=== PATIENT | male | born 1945 | race Caucasian/White ===

== ENCOUNTER 2017-07-20 11:29 | Emergency (ER) | payer MEDICARE ==
--- NOTE | 2017-07-20 11:38 | EDM.PDOC ---
ED HPI GENERAL MEDICAL PROBLEM - General Chief Complaint: General Stated Complaint: high bp, low O2. coming from [facility] Time Seen by Provider: 07/20/17 11:30 Source of Information: Reports: Patient, Provider History Limitations: Reports: No Limitations - History of Present Illness INITIAL COMMENTS - FREE TEXT/NARRATIVE: 72 yo white male seen in PCP office this AM w/ elevated BP w/ systolic 190. Pt. denies Chest Pain and States his breathing is normal for him after 40 yr hx. of cigarette smoking and he stopped 2 yrs ago. Pt. admits to taking his Lisinopril w/ his coffee this AM Onset: Today Onset Date: 07/20/17 Onset Time: 10:00 Duration: Day(s): Location: Reports: Chest Severity: Mild Improves with: Reports: None Worsens with: Reports: None Associated Symptoms: Reports: Cough - Related Data Allergies Allergy/AdvReac Type Severity Reaction Status Date / Time hydrocodone AdvReac Nausea and Verified 07/20/17 12:15 Vomiting Home Meds: Home Meds Levothyroxine Sodium [Synthroid] 175 mcg PO ACBREAKFAST 07/25/15 [History] Lisinopril 40 mg PO DAILY 07/25/15 [History] Aspirin [Halfprin] 81 mg PO WITHBREAKFAST #30 tab.ec 07/29/15 [Rx] Calcium Carbonate/Vitamin D3 [Calcium 600 + D3 Softgel] 1 each PO DAILY [History] Past Medical History Other Oncologic History: throat Social & Family History - Tobacco Use Smoking Status *Q: Current Every Day Smoker Years of Tobacco use: 40 Packs/Tins Daily: 1 Used Tobacco, but Quit: No Second Hand Smoke Exposure: Yes - Recreational Drug Use Recreational Drug Use: No - Living Situation & Occupation Living situation: Reports: , with Spouse Occupation: Retired ED ROS GENERAL - Review of Systems Review Of Systems: See Below Constitutional: Reports: No Symptoms HEENT: Reports: No Symptoms Respiratory: Reports: Cough Cardiovascular: Reports: No Symptoms Endocrine: Reports: No Symptoms GI/Abdominal: Reports: No Symptoms : Reports: No Symptoms Musculoskeletal: Reports: No Symptoms Skin: Reports: No Symptoms Neurological: Reports: No Symptoms Psychiatric: Reports: No Symptoms Hematologic/Lymphatic: Reports: No Symptoms Immunologic: Reports: No Symptoms ED EXAM, GENERAL - Physical Exam Exam: See Below Exam Limited By: No Limitations General Appearance: Alert, No Apparent Distress Eye Exam: Bilateral Eye: EOMI, PERRL Ears: Normal External Exam Nose: Normal Inspection Throat/Mouth: Normal Inspection Head: Atraumatic Neck: Normal Inspection Respiratory/Chest: No Respiratory Distress, Lungs Clear, No Accessory Muscle Use Cardiovascular: Normal Peripheral Pulses GI/Abdominal: Normal Bowel Sounds, Soft Back Exam: Normal Inspection Extremities: Normal Inspection, Normal Range of Motion Neurological: Alert, Oriented, CN II-XII Intact Psychiatric: Normal Affect Skin Exam: Warm, Dry, Intact Lymphatic: No Adenopathy Course - Vital Signs Text/Narrative:: Lab WNL CXR : Atelactesis Last Recorded V/S: Last Vital Signs Temp 36.6 C 07/20/17 12:19 Pulse 77 07/20/17 12:19 Resp 28 H 07/20/17 12:19 BP 174/96 H 07/20/17 12:19 Pulse Ox 98 07/20/17 12:19 - Orders/Labs/Meds Orders: Active Orders 24 hr Category Date Time Status EKG Documentation Completion [RC] STAT Care 07/20/17 11:31 Active RT Aerosol Therapy [RC] ASDIRECTED Care 07/20/17 11:41 Active Chest 1V Frontal [CR] Urgent Exams 07/20/17 11:31 Taken Sodium Chloride 0.9% [Normal Saline] 250 ml Med 07/20/17 11:45 Active IV ASDIRECTED Medication Orders Sodium Chloride (Normal Saline) 250 mls @ 100 mls/hr IV ASDIRECTED CABRERA Last Admin: 07/20/17 12:08 Dose: 100 mls/hr Labs: Laboratory Tests 07/20/17 07/20/17 Range/Units 11:49 11:49 D-Dimer, Quantitative 226 (0-400) ng/mL Troponin I < 0.02 (0.00-0.02) ng/ml B-Natriuretic Peptide 21 (0-100) pg/ml Meds: Medications Generic Name Dose Route Start Last Admin Trade Name Freq PRN Reason Stop Dose Admin Sodium Chloride 250 mls @ 100 mls/hr 07/20/17 11:45 07/20/17 12:08 Normal Saline IV 100 mls/hr ASDIRECTED CABRERA Administration Discontinued Medications Generic Name Dose Route Start Last Admin Trade Name Freq PRN Reason Stop Dose Admin Albuterol/Ipratropium 3 ml 07/20/17 11:41 11/30/17 12:01 Duoneb 3.0-0.5 Mg/3 Ml NEB 07/20/17 11:42 3 ml ONETIME ONE Administration Hydralazine HCl 25 mg 07/20/17 11:39 07/20/17 12:06 Apresoline PO 07/20/17 11:40 25 mg NOW ONE Administration Departure - Departure Time of Disposition: 12:37 Disposition: Home, Self-Care 01 Condition: Good Clinical Impression: URI (upper respiratory infection) Qualifiers: URI type: unspecified viral URI Qualified Code(s): J06.9 - Acute upper respiratory infection, unspecified; B97.89 - Other viral agents as the cause of diseases classified elsewhere; B97.89 - Other viral agents as the cause of diseases classified elsewhere Forms: ED Department Discharge Additional Instructions: Rest Increase intake of Fluids ( Water /Juice) Practice Deep Breathing and Cough to keep lungs clear F/U w/ PCP - My Orders Last 24 Hours: My Active Orders 07/20/17 11:31 EKG Documentation Completion [RC] STAT Chest 1V Frontal [CR] Urgent 07/20/17 11:41 RT Aerosol Therapy [RC] ASDIRECTED 07/20/17 11:45 Sodium Chloride 0.9% [Normal Saline] 250 ml IV ASDIRECTED - Assessment/Plan Last 24 Hours: My Active Orders 07/20/17 11:31 EKG Documentation Completion [RC] STAT Chest 1V Frontal [CR] Urgent 07/20/17 11:41 RT Aerosol Therapy [RC] ASDIRECTED 07/20/17 11:45 Sodium Chloride 0.9% [Normal Saline] 250 ml IV ASDIRECTED
[2017-07-20] MEDS ORDERED: hydrALAZINE 25 MG Tab PO ONE (11:39)
[2017-07-20] MEDS ORDERED: Albuterol/Ipratropium 3.0-0.5 MG/3 ML Neb Soln NEB ONE (11:41)
[2017-07-20] MEDS ORDERED: Sodium Chloride 0.9% 250 ML IV SCH (11:45)
--- NOTE | 2017-07-20 12:37 | CR ---
Clinical history: 72-year-old male shortness of breath reported in the past to have "severe COPD". Interpretation: Upright AP portable chest films (x2) reveal no acute new cardiopulmonary abnormality in the interval since 25 July 2015 PA chest film. Normal cardiac silhouette without cephalization of vascular flow, new signs of alveolar edema or depe ndent pleural effusion. No new lung mass, hilar lymphadenopathy, focal lobar infiltrate or atelectasis/collapse.
[2017-07-20 12:43] VITALS: BP 153/76
--- NOTE | 2017-07-24 07:45 | EKG ---
07/20/2017- EULALIA SIMPSON - EKG, per my reading, shows sinus rhythm with left anterior fascicular block at a rate of 74. [facility] /[id number]
== END 2017-07-20 12:57 | disposition home or self-care (01) ==
LOC: DL.ED 11:29
DX: I10 Essential (primary) hypertension (principal); J44.9 Chronic obstructive pulmonary disease, unspecified; F17.210 Nicotine dependence, cigarettes, uncomplicated; Z79.82 Long term (current) use of aspirin; Z79.899 Other long term (current) drug therapy; Z88.5 Allergy status to narcotic agent
CPT/HCPCS: 36415; 71010; 83880; 84484; 85379; 93005; 93010; 94640; 96360; 99285; A9270; J7050; 99284

== ENCOUNTER 2018-11-04 11:49 | Inpatient (IN) | payer MEDICARE, OTHER ==
[2018-11-04] MEDS ORDERED: Albuterol/Ipratropium 3.0-0.5 MG/3 ML Neb Soln NEB ONE (12:07)
[2018-11-04] MEDS ORDERED: methylPREDNISolone Sodium Succinate 125 MG/2 ML SDV IVPUSH ONE (12:12)
[2018-11-04] MEDS ORDERED: Ondansetron 4 MG/2 ML SDV IV ONE (12:12)
[2018-11-04] MEDS: Sodium Chloride 0.9% 10 ML Syringe FLUSH PRN ×2 (12:19→18:13)
[2018-11-04 12:48] LABS: ANION GAP 15.8; CHLORIDE,CL 86 mmol/L (101-111); SODIUM,NA 129 mmol/L (135-145)
[2018-11-04] MEDS ORDERED: Acetaminophen 500 MG Tab PO ONE (13:34)
[2018-11-04] MEDS ORDERED: Iopamidol 612 MG/ML 75 ML Bottle IVPUSH ONE (14:49)
[2018-11-04] MEDS ORDERED: Iopamidol 755 Mg/ML 100 ML Bottle IVPUSH ONE (15:16)
[2018-11-04] MEDS ORDERED: Levofloxacin/Dextrose 5%-Water 500 MG in Premix Bag 1 BAG IV ONE (16:14)
[2018-11-04] MEDS ORDERED: cefTRIAXone 1 GM in Sodium Chloride 0.9% 50 ML IV ONE (16:14)
[2018-11-04] MEDS ORDERED: cefTRIAXone 1 GM Vial ONE (16:37)
--- NOTE | 2018-11-04 17:05 | PCM.HP ---
H&P History of Present Illness - General Date of Service: 11/04/18 Admit Problem/Dx: admitted with: Increased shortness of breath secondary to COPD exacerbation Secondary to Pneumonia Source of Information: Patient, EMS Notes Reviewed, Old Records - History of Present Illness Initial Comments - Free Text/Narative: Mr. Adams Morton a 73 y.o.malewith medical history significant for non-ST elevation VT in the past, COPD, hypertension, and pst history of nicotine dependence ( quit 5 yrs ago) who presented to the ED in [place] with complaints of shortness of breath and he had elevated white count, CXR showed left lower lobe Pneumonia, he also had elevated D-dimer and he CT angiogram- negative for PE and also showed left lower lobe pneumonia. his o2 sat in ER low, he is on home oxygen but now he needs more. He is admitted for COPD exerbation secondary to pneumonia Onset of Symptoms: Reports: Gradual Duration of Symptoms: Reports: Getting Worse Associated Symptoms: Reports: cough w sputum - Related Data Allergies/Adverse Reactions: Allergies Allergy/AdvReac Type Severity Reaction Status Date / Time hydrocodone AdvReac Nausea and Verified 11/04/18 12:30 Vomiting Home Medications: Home Meds Levothyroxine Sodium [Synthroid] 175 mcg PO ACBREAKFAST 07/25/15 [History] Lisinopril 40 mg PO DAILY 07/25/15 [History] Aspirin [Halfprin] 81 mg PO WITHBREAKFAST #30 tab.ec 07/29/15 [Rx] Calcium Carbonate/Vitamin D3 [Calcium 600 + D3 Softgel] 2 each PO DAILY [History] Albuterol Sulfate 1 unit INH ASDIRECTED PRN 06/27/18 [History] Albuterol [Ventolin HFA] 2 puff INH ASDIRECTED PRN 06/27/18 [History] amLODIPine Besylate [Amlodipine Besylate] 5 mg PO DAILY 06/27/18 [History] Fluticasone/Umeclidin/Vilanter [Trelegy Ellipta 100-62.5-25 MCG] 1 puff INH DAILY 11/04/18 [History] Past Medical History HEENT History: Reports: Other (See Below) Other HEENT History: deviated septum Cardiovascular History: Reports: Hypertension Respiratory History: Reports: Bronchitis, Recurrent, COPD Other Respiratory History: wears home O2 Genitourinary History: Reports: Other (See Below) Other Genitourinary History: elevated PSA Musculoskeletal History: Reports: Fracture Endocrine/Metabolic History: Reports: Hypothyroidism Oncologic (Cancer) History: Reports: Other (See Below) Other Oncologic History: throat - Infectious Disease History Infectious Disease History: Reports: MRSA - Past Surgical History Musculoskeletal Surgical History: Reports: Other (See Below) Other Musculoskeletal Surgeries/Procedures:: right hip femoral neck fracture- hemiarthroplasty Social & Family History - Tobacco Use Smoking Status *Q: Former Smoker Used Tobacco, but Quit: Yes Month/Year Tobacco Last Used: 4 Tobacco Use Comment: states he stopped smoking approx. 4 years ago, thinks it was longer than that - Caffeine Use Caffeine Use: Reports: Coffee, Soda - Living Situation & Occupation Living situation: Reports: , with Spouse Occupation: Retired H&P Review of Systems - Review of Systems: Review Of Systems: See Below General: Reports: Weakness. Denies: Fever, Chills HEENT: Denies: Headaches, Hearing Changes, Sinus Congestion, Sore Throat, Visual Changes Pulmonary: Reports: Shortness of Breath, Wheezing, Cough, Sputum Cardiovascular: Denies: Chest Pain, Edema, Lightheadedness Gastrointestinal: Denies: Abdominal Pain, Diarrhea, Nausea, Vomiting Genitourinary: Denies: Dysuria, Frequency, Burning, Flank Pain Musculoskeletal: Denies: Neck Pain, Shoulder Pain, Foot Pain, Joint Swelling Skin: Denies: Cyanosis, Jaundice, Bruising, Pruritis, Rash Psychiatric: Denies: Confusion, Anxiety Neurological: Denies: Confusion, Numbness, Tingling, Tremors Hematologic/Lymphatic: Denies: Easy Bleeding, Easy Bruising Immunologic: Reports: No Symptoms Exam - Exam Exam: See Below - Vital Signs Vital Signs: Last Vital Signs Temp 38.8 C H 11/04/18 13:37 Pulse 119 H 11/04/18 11:56 Resp 31 H 11/04/18 11:56 BP Pulse Ox 68 L 11/04/18 11:56 Weight: 56.699 kg - Exam Quality Assessment: Supplemental Oxygen, DVT Prophylaxis. No: Urinary Catheter General: Alert, Oriented, Cooperative HEENT: Conjunctiva Clear, EOMI, Mucosa Moist & [place], Pupils Equal, Pupils Reactive Neck: Supple. No: Lymphadenopathy, Thyromegaly Lungs: Clear to Auscultation, Normal Respiratory Effort, Wheezing Cardiovascular: Regular Rate, Regular Rhythm, Systolic Murmur GI/Abdominal Exam: Normal Bowel Sounds, Soft, Non-Tender. No: Guarding, Rebound (Male) Exam: Deferred Rectal (Males) Exam: Deferred Back Exam: Normal Inspection, Full Range of Motion Extremities: Normal Inspection, No Pedal Edema Skin: Warm, Dry, Intact Neurological: Cranial Nerves Intact, Reflexes Equal Bilateral Neuro Extensive - Mental Status: Alert, Oriented x3, Normal Mood/Affect, Normal Cognition, Memory Intact Neuro Extensive - Motor, Sensory, Reflexes: CN II-XII Intact Psychiatric: Alert, Normal Affect, Normal Mood - Patient Data Lab Results Last 24 hrs: Laboratory Results - last 24 hr 11/04/18 11/04/18 11/04/18 Range/Units 12:15 12:15 12:15 WBC 14.9 H (5.0-10.0) 10^3/uL RBC 4.40 L (4.6-6.2) 10^6/uL Hgb 13.6 L D (14.0-18.0) g/dL Hct 40.8 (40.0-54.0) % MCV 92.7 (80-100) fL MCH 30.9 (27.0-34.0) pg MCHC 33.3 (33.0-35.0) g/dL Plt Count 182 D (150-450) 10^3/uL Neut % (Auto) 89.3 H (42.2-75.2) % Lymph % (Auto) 4.3 L (20.5-50.1) % [place] % (Auto) 5.9 (2-8) % Eos % (Auto) 0.3 L (1.0-3.0) % Baso % (Auto) 0.2 (0.0-1.0) % D-Dimer, Quantitative (0-400) ng/mL Sodium 129 L (135-145) mmol/L Potassium 3.8 (3.6-5.0) mmol/L Chloride 86 L (101-111) mmol/L Carbon Dioxide 31.0 (21.0-31.0) mmol/L Anion Gap 15.8 BUN 20 H (7-18) mg/dL Creatinine 0.9 (0.6-1.3) mg/dL Est Cr Clr Drug Dosing 58.62 mL/min Estimated GFR (MDRD) > 60 BUN/Creatinine Ratio 22.22 Glucose 128 H (74-105) mg/dL Lactic Acid 1.3 (0.5-2.2) mmol/L Calcium 9.6 (8.4-10.2) mg/dl Total Bilirubin 0.8 (0.2-1.0) mg/dL AST 31 (10-42) IU/L ALT 20 (10-60) IU/L Alkaline Phosphatase 70 (42-121) IU/L Troponin I (0.00-0.02) ng/ml B-Natriuretic Peptide 31 (0-100) pg/ml Total Protein 8.1 (6.7-8.2) g/dl Albumin 3.9 (3.2-5.5) g/dl Globulin 4.2 Albumin/Globulin Ratio 0.93 Urine Color (YELLOW) Urine Appearance (CLEAR) Urine pH (5.0-9.0) Ur Specific [place] (1.005-1.030) Urine Protein (NEGATIVE) Urine Glucose (UA) (NEGATIVE) Urine Ketones (NEGATIVE) Urine Occult Blood (NEGATIVE) Urine Nitrite (NEGATIVE) Urine Bilirubin (NEGATIVE) Urine Urobilinogen (0.2-1.0) mg/dL Ur Leukocyte Esterase (NEGATIVE) 11/04/18 11/04/18 11/04/18 Range/Units 12:15 12:15 12:35 WBC (5.0-10.0) 10^3/uL RBC (4.6-6.2) 10^6/uL Hgb (14.0-18.0) g/dL Hct (40.0-54.0) % MCV (80-100) fL MCH (27.0-34.0) pg MCHC (33.0-35.0) g/dL Plt Count (150-450) 10^3/uL Neut % (Auto) (42.2-75.2) % Lymph % (Auto) (20.5-50.1) % [place] % (Auto) (2-8) % Eos % (Auto) (1.0-3.0) % Baso % (Auto) (0.0-1.0) % D-Dimer, Quantitative 1650 H (0-400) ng/mL Sodium (135-145) mmol/L Potassium (3.6-5.0) mmol/L Chloride (101-111) mmol/L Carbon Dioxide (21.0-31.0) mmol/L Anion Gap BUN (7-18) mg/dL Creatinine (0.6-1.3) mg/dL Est Cr Clr Drug Dosing mL/min Estimated GFR (MDRD) BUN/Creatinine Ratio Glucose (74-105) mg/dL Lactic Acid (0.5-2.2) mmol/L Calcium (8.4-10.2) mg/dl Total Bilirubin (0.2-1.0) mg/dL AST (10-42) IU/L ALT (10-60) IU/L Alkaline Phosphatase (42-121) IU/L Troponin I < 0.02 (0.00-0.02) ng/ml B-Natriuretic Peptide (0-100) pg/ml Total Protein (6.7-8.2) g/dl Albumin (3.2-5.5) g/dl Globulin Albumin/Globulin Ratio Urine Color Yellow (YELLOW) Urine Appearance Clear (CLEAR) Urine pH 7.0 (5.0-9.0) Ur Specific [place] 1.020 (1.005-1.030) Urine Protein Negative (NEGATIVE) Urine Glucose (UA) Negative (NEGATIVE) Urine Ketones Negative (NEGATIVE) Urine Occult Blood Negative (NEGATIVE) Urine Nitrite Negative (NEGATIVE) Urine Bilirubin Negative (NEGATIVE) Urine Urobilinogen 0.2 (0.2-1.0) mg/dL Ur Leukocyte Esterase Negative (NEGATIVE) Result Diagrams: 11/04/18 12:15 11/04/18 12:15 Shant Results Last 24 hrs: Microbiology 11/04/18 15:13 Gram Stain - Final Sputum - Induced - Problem List (1) Pneumonia SNOMED Code(s): 205068051 ICD Code: J18.9 - PNEUMONIA, UNSPECIFIED ORGANISM Status: Acute Current Visit: Yes (2) COPD with acute exacerbation SNOMED Code(s): 610289657 ICD Code: J44.1 - CHRONIC OBSTRUCTIVE PULMONARY DISEASE W (ACUTE) EXACERBATION Status: Acute Priority: High Current Visit: No Problem List Initiated/Reviewed/Updated: Yes Orders Last 24hrs: Active Orders 24 hr Category Date Time Status Peripheral IV Care [RC] 09,21 Care 11/04/18 12:05 Active RT Aerosol Therapy [RC] ASDIRECTED Care 11/04/18 12:08 Active CULTURE BLOOD [BC] Stat Lab 11/04/18 12:13 Received CULTURE BLOOD [BC] Stat Lab 11/04/18 12:15 Received CULTURE SPUTUM + SMEAR [RM] Stat Lab 11/04/18 15:13 Results Levofloxacin/Dextrose 5%-Water [Levaquin in D5W 500 MG/ Med 11/04/18 16:14 Active 100 ML] 500 mg Premix Bag 1 bag IV ONETIME Sodium Chloride 0.9% [Saline Flush] Med 11/04/18 12:05 Active 10 ml FLUSH ASDIRECTED PRN cefTRIAXone [Rocephin] 1 gm Med 11/04/18 16:14 Active Sodium Chloride 0.9% [Normal Saline] 50 ml IV ONETIME Peripheral IV Insertion Adult [OM.PC] Routine Oth 11/04/18 12:05 Ordered Medication Orders Ceftriaxone Sodium 1 gm/ (Sodium Chloride) 50 mls @ 50 mls/hr IV ONETIME ONE Stop: 11/04/18 17:13 Last Admin: 11/04/18 16:42 Dose: 50 mls/hr Levofloxacin/Dextrose 500 mg/ (Premix) 100 mls @ 100 mls/hr IV ONETIME ONE Stop: 11/04/18 17:13 Last Admin: 11/04/18 16:48 Dose: 100 mls/hr Sodium Chloride (Saline Flush) 10 ml FLUSH ASDIRECTED PRN PRN Reason: Keep Vein Open Last Admin: 11/04/18 12:19 Dose: 10 ml Assessment/Plan Comment:: This is a 73 y/o pleasant male with history of severe COPD on home oxygen 2L came to ED with complain of increased shortness of breath since yesterday ( 11/03) but getting worse. CXR and CT of chest showed left lower lobe pneumonia and admitted for COPD exacerbation Impression and Plan: 1. COPD Exacerbation Secondary to pneumonia -Will continue solumedrol at 60 mg q6 hrs -Follow B/C and sputum culture -Will continue Levofloxacin and Zosyn -Continue Duonebs/albuterol -encourage to use Flutter valve and incentive spirometer 2. Left lower lobe pneumonia: will continue the abx levofloxacin and Zosyn 3.Hypertension: BP acceptable continue amlodipine and lisinopril 4. GI prophylaxis: Start Protonix 5. DVT prophylaxis: on Heparin Code status: Discussed with pt and wants to be Full Code
[2018-11-04] MEDS ORDERED: Docusate Sodium 100 MG Cap PO PRN (17:30)
[2018-11-04] MEDS ORDERED: Non-Formulary Medication 1 Each (Albuterol 2 PUFF) INH PRN (17:36)
[2018-11-04] MEDS ORDERED: Albuterol 0.021% 0.63 MG/3 ML Neb Soln NEB PRN (17:38)
[2018-11-04] MEDS ORDERED: Albuterol 6.7 GM Inhaler INH PRN (17:59)
[2018-11-04] MEDS: Piperacillin/Tazobactam 3.375 GM in Sodium Chloride 0.9% 100 ML IV SCH ×2 (18:13→23:57)
[2018-11-04] MEDS: Albuterol/Ipratropium 3.0-0.5 MG/3 ML Neb Soln NEB SCH ×2 (18:13→22:07)
[2018-11-04] MEDS: Heparin Sodium 5,000 Units/ML Vial SUBCUT SCH (22:07)
--- NOTE | 2018-11-04 23:07 | ER ---
SUBJECTIVE: The patient is a 73-year-old male with known multiple chronic issues, including home oxygen, advanced COPD, multiple pneumonias, and other ongoing issues who comes in because he is having a worsening short of breath that began probably yesterday. He feels even with home oxygen, he is getting behind the ball. He arrived at 68% on his own intermittent home oxygen this system. He states he is doing good yesterday morning, he went to a wrestling match yesterday afternoon of his grandson, and throughout the day in the evening and the night, he seemed to get a little worse and finally became even worse this morning. He comes in for eval. No fevers. He does have chills and weakness. No chest pain. He states his bowel bladder is working fine and at baseline. PAST MEDICAL HISTORY: Significant for COPD, deviated septum, hypertension, recurrent bronchitis, home oxygen supplementation chronically, osteoarthritis, right hip femoral neck fracture with hemiarthroplasty, hypothyroidism, remote history of MRSA. CURRENT MEDICATIONS: 1. Levothyroxine 175 mcg p.o. before breakfast. 2. Lisinopril 40 mg p.o. daily. 3. Aspirin 81 mg p.o. daily. 4. Calcium 600 with vitamin D3 p.o. daily. 5. Albuterol one unit and inhaled as directed. 6. Ventolin HFA two puffs inhaled as directed. 7. Levothyroxine 88 mcg p.o. daily. 8. Amlodipine 5 mg p.o. daily. ALLERGIES: He states he is allergic to hydrocodone, causes nausea and vomiting. SOCIAL HISTORY: He is . He quit smoking about 4 or 5 years ago. He did smoke for numerous years. He does not use any alcohol or substances. REVIEW OF SYSTEMS: Fatigue, general weakness, much of which is chronic. Recurrent exacerbations of COPD, and now has shortness of breath. No chest pain. No fevers. Some chills. No nausea or vomiting. No bleeding. No new bowel or bladder changes. No assault or trauma. No syncope or near syncope. No ear pain, throat pain, or sinus pain. OBJECTIVE: Vital Signs: His temperature is 38.4 C on arrival, pulse is 119, oxygen sats are 68% on the patient's home oxygen system at 2 L, his respiratory rate is about 31. GENERAL: He is warm and appears somewhat cyanotic. He does talk in 1 to 2 word sentences. He is interactive and smiling. He is nontoxic. Appears warm and is thin. Mucous membranes are moist. No sinus tenderness. No ear tenderness or drainage. Neck: No lymphadenopathy. Nontender. Chest: Breath sounds are distant, kind of mildly coarse. Poor movement of air. He is tachycardic. Abdomen: Soft, benign. Back: No CVAT. Extremities: No calf tenderness. LAB/STUDIES: An electrocardiogram was performed, he did have sinus tachycardia, he had a left anterior fascicular block, he does not have any acute ST changes. His white count was elevated at 14.9, he had no anemia, platelets were low at 182, PMNs were elevated at 89.3, there were no band cells. Sodium was 129, although electrolytes are quite good. His BUN and creatinine were 20 and 0.9 respectively. Lactate was normal at 1.3. Total bili and LFTs were normal. His BNP was 31. His troponin was less than 0.02. His D-dimer was elevated at 1650. His urine was yellow and clear, not remarkable. Chest x-ray was suspicious for left-sided pneumonia, and he has chronic and persistent COPD findings. Because the dimer was high and he has quite a bit of dyspnea and low sats, contrasted angio CT of the chest was performed. It did not show any clot, but did show and confirmed findings on the chest x-ray of left lower lobe pneumonia and ongoing COPD. EMERGENCY ROOM COURSE: IV was placed. He did receive DuoNeb. He received IV Solu-Medrol. He also received IV Zofran. He was drinking fluids by mouth well. Once cultures were performed on both sputum and blood and all the workup was back, he did receive a g of Rocephin and is in the process of getting levofloxacin. He remains improved and stable. I did discuss the patient with the hospitalist today with Dr. Sheffield and he agreed to accept the patient to his Inpatient Service. ASSESSMENT: 1. Left lower lobe pneumonia with history of the same. 2. Exacerbation of chronic obstructive pulmonary disease, advanced. 3. Chronic oxygen supplementation and dependency at home. 4. Hypoxemia. 5. Nausea, resolved. PLANS: Admit to Dr. Sheffield. Please see his note and orders. [facility] /[id number]
[2018-11-05] MEDS: Acetaminophen 325 MG Tab PO PRN ×2 (03:43→21:44)
[2018-11-05] MEDS: Albuterol/Ipratropium 3.0-0.5 MG/3 ML Neb Soln NEB SCH ×6 (03:43→22:25)
[2018-11-05] MEDS: Heparin Sodium 5,000 Units/ML Vial SUBCUT SCH ×3 (06:13→21:43)
[2018-11-05] MEDS: methylPREDNISolone Sodium Succinate 40 MG/1 ML SDV IVPUSH SCH ×2 (06:13→13:07)
[2018-11-05] MEDS: Levothyroxine 50 MCG Tab PO SCH (06:13)
[2018-11-05] MEDS: Piperacillin/Tazobactam 3.375 GM in Sodium Chloride 0.9% 100 ML IV SCH (06:13)
[2018-11-05] MEDS: Aspirin 81 MG Tab.EC PO SCH (08:57)
[2018-11-05] MEDS: amLODIPine 5 MG Tab PO SCH (08:58)
[2018-11-05] MEDS: Lisinopril 20 MG Tab PO SCH (08:58)
[2018-11-05] MEDS: FLUTICASONE INH SCH (10:27)
[2018-11-05] MEDS: UMECLIDIN INH SCH (10:27)
[2018-11-05] MEDS: VILANTER INH SCH (10:27)
[2018-11-05] MEDS: cefTRIAXone 1 GM in Sodium Chloride 0.9% 50 ML IV SCH (13:09)
[2018-11-05] MEDS ORDERED: Azithromycin 500 MG in Sodium Chloride 0.9% 250 ML IV ONE (14:00)
[2018-11-05] MEDS ORDERED: Azithromycin 250 MG Tab PO SCH (14:00)
--- NOTE | 2018-11-05 14:33 | PCM.PN ---
- General Info Date of Service: 11/05/18 Admission Dx/Problem (Free Text): admitted with: Increased shortness of breath secondary to COPD exacerbation Secondary to Pneumonia Subjective Update: Feels much better today, no CP, SOB is improved. - Review of Systems General: Denies: Fever HEENT: Reports: No Symptoms Pulmonary: Reports: Shortness of Breath Cardiovascular: Reports: No Symptoms Gastrointestinal: Reports: No Symptoms Genitourinary: Reports: No Symptoms Musculoskeletal: Reports: No Symptoms - Patient Data Vitals - Most Recent: Last Vital Signs Temp 36.9 C 11/05/18 12:22 Pulse 76 11/05/18 12:22 Resp 18 11/05/18 12:22 BP 101/57 L 11/05/18 12:22 Pulse Ox 90 L 11/05/18 12:50 Weight - Most Recent: 56.699 kg I&O - Last 24 Hours: Intake & Output 11/04/18 11/05/18 11/05/18 22:59 06:59 14:59 Intake Total 296 102 744 Output Total 300 100 Balance 296 -198 644 Lab Results Last 24 Hours: Laboratory Results - last 24 hr 11/04/18 11/05/18 11/05/18 Range/Units 12:15 06:35 06:35 WBC 13.6 H (5.0-10.0) 10^3/uL RBC 3.49 L (4.6-6.2) 10^6/uL Hgb 10.8 L D (14.0-18.0) g/dL Hct 32.6 L (40.0-54.0) % MCV 93.4 (80-100) fL MCH 30.9 (27.0-34.0) pg MCHC 33.1 (33.0-35.0) g/dL Plt Count 162 (150-450) 10^3/uL Neut % (Auto) 89.5 H (42.2-75.2) % Lymph % (Auto) 3.0 L (20.5-50.1) % [place] % (Auto) 7.5 (2-8) % Eos % (Auto) 0.0 L (1.0-3.0) % Baso % (Auto) 0.0 (0.0-1.0) % Sodium 127 L (135-145) mmol/L Potassium 4.0 (3.6-5.0) mmol/L Chloride 88 L (101-111) mmol/L Carbon Dioxide 28.0 (21.0-31.0) mmol/L Anion Gap 15.0 BUN 23 H (7-18) mg/dL Creatinine 1.2 (0.6-1.3) mg/dL Est Cr Clr Drug Dosing 43.97 mL/min Estimated GFR (MDRD) 59 Glucose 134 H (74-105) mg/dL Calcium 8.8 (8.4-10.2) mg/dl Troponin I < 0.02 (0.00-0.02) ng/ml [facility] Results Last 24 Hours: Microbiology 11/04/18 12:13 Aerobic Blood Culture - Preliminary Blood NO GROWTH AFTER 1 DAY Anaerobic Blood Culture - Preliminary NO GROWTH AFTER 1 DAY 11/04/18 15:13 Gram Stain - Final Sputum - Induced Med Orders - Current: Current Medications Acetaminophen (Tylenol) 650 mg PO Q4H PRN PRN Reason: Pain (mild 1-3 )/fever Last Admin: 11/05/18 03:43 Dose: 650 mg Albuterol (Proventil Neb Soln) 0.63 mg NEB Q4HRRT PRN PRN Reason: Shortness of Breath Last Admin: 11/05/18 12:49 Dose: 0.63 mg Albuterol (Proventil Hfa) 0 gm INH Q4H PRN PRN Reason: BREATHING Albuterol/Ipratropium (Duoneb 3.0-0.5 Mg/3 Ml) 3 ml NEB Q4HRRT [facility] Last Admin: 11/05/18 12:30 Dose: Not Given Amlodipine Besylate (Norvasc) 5 mg PO DAILY [facility] Last Admin: 11/05/18 08:58 Dose: 5 mg Aspirin (Halfprin) 81 mg PO WITHBREAKFAST [facility] Last Admin: 11/05/18 08:57 Dose: 81 mg Azithromycin (Zithromax) 250 mg PO DAILY [facility] Stop: 11/09/18 09:01 Docusate Sodium (Colace) 100 mg PO DAILY PRN PRN Reason: Constipation Heparin Sodium (Porcine) (Heparin Sodium) 5,000 units SUBCUT Q8H [facility] Last Admin: 11/05/18 13:09 Dose: 5,000 units Ceftriaxone Sodium 1 gm/ (Sodium Chloride) 50 mls @ 100 mls/hr IV Q24H [facility] Last Admin: 11/05/18 13:09 Dose: 100 mls/hr Levothyroxine Sodium (Synthroid) 175 mcg PO ACBREAKFAST [facility] Last Admin: 11/05/18 06:13 Dose: 175 mcg Lisinopril (Prinivil) 40 mg PO DAILY [facility] Last Admin: 11/05/18 08:58 Dose: 40 mg Fluticasone/Umeclidin/Vilanter [ Trelegy Ellipta 100- 62.5-25] Inh 1 puff INH DAILY [facility] Last Admin: 11/05/18 10:27 Dose: 1 puff Prednisone (Prednisone) 40 mg PO WITHBREAKFAST [facility] Sodium Chloride (Saline Flush) 10 ml FLUSH ASDIRECTED PRN PRN Reason: Keep Vein Open Last Admin: 11/04/18 18:13 Dose: 10 ml Discontinued Medications Acetaminophen (Tylenol Extra Strength) 1,000 mg PO ONETIME ONE Stop: 11/04/18 13:35 Last Admin: 11/04/18 13:37 Dose: 1,000 mg Albuterol/Ipratropium (Duoneb 3.0-0.5 Mg/3 Ml) 3 ml NEB ONETIME ONE Stop: 11/04/18 12:08 Last Admin: 11/04/18 12:14 Dose: 3 ml Azithromycin (Zithromax) 500 mg PO DAILY@1400 [facility] Stop: 11/05/18 14:01 Last Admin: 11/05/18 13:10 Dose: 500 mg Ceftriaxone Sodium (Rocephin) Confirm Administered Dose 1 gm .ROUTE .STK-MED ONE Stop: 11/04/18 16:38 Last Admin: 11/04/18 16:59 Dose: Not Given Ceftriaxone Sodium 1 gm/ (Sodium Chloride) 50 mls @ 50 mls/hr IV ONETIME ONE Stop: 11/04/18 17:13 Last Admin: 11/04/18 16:42 Dose: 50 mls/hr Levofloxacin/Dextrose 500 mg/ (Premix) 100 mls @ 100 mls/hr IV ONETIME ONE Stop: 11/04/18 17:13 Last Admin: 11/04/18 16:48 Dose: 100 mls/hr Piperacillin Sod/Tazobactam (Sod 3.375 gm/ Sodium Chloride) 100 mls @ 200 mls/ hr IV Q6H [facility] Last Admin: 11/05/18 06:13 Dose: 200 mls/hr Levofloxacin/Dextrose 500 mg/ (Premix) 100 mls @ 100 mls/hr IV Q24H [facility] Iopamidol (Isovue-300 (61%)) 75 ml IVPUSH ONETIME ONE Stop: 11/04/18 14:50 Last Admin: 11/04/18 18:43 Dose: Not Given Iopamidol (Isovue-370 (76%)) 100 ml IVPUSH ONETIME ONE Stop: 11/04/18 15:17 Last Admin: 11/04/18 15:30 Dose: 82 ml Methylprednisolone Sodium Succinate (Solu-Medrol) 125 mg IVPUSH ONETIME ONE Stop: 11/04/18 12:13 Last Admin: 11/04/18 12:19 Dose: 125 mg Methylprednisolone Sodium Succinate (Solu-Medrol) 60 mg IVPUSH Q6H [facility] Last Admin: 11/05/18 13:07 Dose: Not Given Non-Formulary Medication (Albuterol) 2 puff INH ASDIRECTED PRN PRN Reason: breathing Ondansetron HCl (Zofran) 4 mg IV ONETIME ONE Stop: 11/04/18 12:13 Last Admin: 11/04/18 12:18 Dose: 4 mg - Exam General: Alert, Oriented HEENT: Pupils Equal Neck: Supple Lungs: Crackles Cardiovascular: Regular Rate, Regular Rhythm GI/Abdominal Exam: Normal Bowel Sounds, Soft, Non-Tender - Problem List Review Problem List Initiated/Reviewed/Updated: Yes - My Orders Last 24 Hours: My Active Orders 11/05/18 11:37 RT Incentive Spirometry [RC] Q2HWA 11/05/18 12:00 cefTRIAXone [Rocephin] 1 gm Sodium Chloride 0.9% [Normal Saline] 50 ml IV Q24H 11/05/18 Lunch Fluid Restriction [DIET] 11/06/18 05:11 BASIC METABOLIC PANEL,BMP [CHEM] AM CBC WITH AUTO DIFF [HEME] AM 11/06/18 08:00 predniSONE 40 mg PO WITHBREAKFAST 11/06/18 09:00 Azithromycin [Zithromax] 250 mg PO DAILY 11/07/18 05:11 BASIC METABOLIC PANEL,BMP [CHEM] AM CBC WITH AUTO DIFF [HEME] AM 11/08/18 05:11 BASIC METABOLIC PANEL,BMP [CHEM] AM CBC WITH AUTO DIFF [HEME] AM - Plan Plan:: This is a 73 y/o pleasant male with history of severe COPD on home oxygen 2L came to ED with complain of increased shortness of breath. CXR and CT of chest showed left lower lobe pneumonia and admitted for COPD exacerbation Impression and Plan: 1. COPD Exacerbation Secondary to pneumonia -switch IV solumedrol to oral prednisone daily -LABA/ICS -Continue Duonebs/albuterol -encourage to use Flutter valve and incentive spirometer 2. Left lower lobe pneumonia: switch abx to ceftriaxone, azithromycin 3.Hypertension: BP acceptable continue amlodipine and lisinopril 4. GI prophylaxis: continue Protonix 5. DVT prophylaxis: on Heparin Code status: Full Code
[2018-11-05] MEDS ORDERED: Levofloxacin/Dextrose 5%-Water 500 MG in Premix Bag 1 BAG IV SCH (19:00)
[2018-11-06] MEDS: Albuterol/Ipratropium 3.0-0.5 MG/3 ML Neb Soln NEB SCH ×3 (06:52→10:58)
[2018-11-06] MEDS: Levothyroxine 50 MCG Tab PO SCH (06:53)
[2018-11-06] MEDS: Heparin Sodium 5,000 Units/ML Vial SUBCUT SCH ×2 (06:53→15:23)
[2018-11-06 07:06] LABS: ANION GAP 11.4; CHLORIDE,CL 93 mmol/L (101-111); SODIUM,NA 132 mmol/L (135-145)
[2018-11-06] MEDS ORDERED: predniSONE 20 MG Tab PO SCH (08:00)
[2018-11-06] MEDS: amLODIPine 5 MG Tab PO SCH (08:28)
[2018-11-06] MEDS: Lisinopril 20 MG Tab PO SCH (08:28)
[2018-11-06] MEDS: Aspirin 81 MG Tab.EC PO SCH (08:28)
[2018-11-06] MEDS: VILANTER INH SCH (08:30)
[2018-11-06] MEDS: FLUTICASONE INH SCH (08:30)
[2018-11-06] MEDS: UMECLIDIN INH SCH (08:30)
[2018-11-06] MEDS ORDERED: Azithromycin 250 MG Tab PO SCH (09:00)
--- NOTE | 2018-11-06 10:51 | PCM.DCSUM1 ---
Discharge Summary - Hospital Course Free Text/Narrative:: This is a 73 y/o pleasant male with history of severe COPD on home oxygen 2L came to ED with complain of increased shortness of breath. CXR and CT of chest showed left lower lobe pneumonia and admitted for COPD exacerbation. SOB improved with treatment with COPD protocol, antibiotics OK for discharge home on oral antibiotics and short course of prednisone Follow up with PCP - Discharge Data Discharge Date: 11/06/18 Discharge Disposition: Home, Self-Care 01 Condition: Stable - Patient Instructions Diet: Usual Diet as Tolerated Activity: As Tolerated - Discharge Plan Prescriptions/Med Rec: Amoxicillin/Potassium Clav [Augmentin 875-125 Tablet] 1 each PO BID 7 Days #14 tablet predniSONE [Prednisone] 50 mg PO DAILY 5 Days #5 tablet Home Medications: Home Meds Levothyroxine Sodium [Synthroid] 175 mcg PO ACBREAKFAST 07/25/15 [History] Lisinopril 40 mg PO DAILY 07/25/15 [History] Aspirin [Halfprin] 81 mg PO WITHBREAKFAST #30 tab.ec 07/29/15 [Rx] Calcium Carbonate/Vitamin D3 [Calcium 600 + Vit D 400 Softgl] 2 each PO DAILY [History] Albuterol Sulfate 1 unit INH Q4HR PRN 06/27/18 [History] Albuterol [Ventolin HFA] 2 puff INH Q4HR PRN 06/27/18 [History] amLODIPine Besylate [Amlodipine Besylate] 5 mg PO DAILY 06/27/18 [History] Fluticasone/Umeclidin/Vilanter [Trelegy Ellipta 100-62.5-25 MCG] 1 puff INH DAILY 11/04/18 [History] Amoxicillin/Potassium Clav [Augmentin 875-125 Tablet] 1 each PO BID 7 Days #14 tablet 11/06/18 [Rx] predniSONE [Prednisone] 50 mg PO DAILY 5 Days #5 tablet 11/06/18 [Rx] Forms: ED Department Discharge Referrals: PCP,None [Primary Care Provider] - - Discharge Summary/Plan Comment DC Time >30 min.: Yes - General Info Date of Service: 11/06/18 Admission Dx/Problem (Free Text: admitted with: Increased shortness of breath secondary to COPD exacerbation Secondary to Pneumonia Subjective Update: Feels much better today, no CP, SOB is improved. - Review of Systems General: Denies: Fever HEENT: Reports: No Symptoms Pulmonary: Reports: No Symptoms Cardiovascular: Reports: No Symptoms Gastrointestinal: Reports: No Symptoms Genitourinary: Reports: No Symptoms - Patient Data Vitals - Most Recent: Last Vital Signs Temp 36.4 C 11/06/18 07:59 Pulse 84 11/06/18 07:59 Resp 32 H 11/06/18 09:21 BP 125/76 11/06/18 08:28 Pulse Ox 93 L 11/06/18 09:21 Weight - Most Recent: 56.699 kg I&O - Last 24 hours: Intake & Output 11/05/18 11/06/18 11/06/18 22:59 06:59 14:59 Intake Total 880 75 575 Output Total 450 1250 175 Balance 430 -1175 400 Lab Results - Last 24 hrs: Laboratory Results - last 24 hr 11/06/18 11/06/18 Range/Units 06:07 06:07 WBC 13.7 H (5.0-10.0) 10^3/uL RBC 3.71 L (4.6-6.2) 10^6/uL Hgb 11.2 L (14.0-18.0) g/dL Hct 34.8 L (40.0-54.0) % MCV 93.8 (80-100) fL MCH 30.2 (27.0-34.0) pg MCHC 32.2 L (33.0-35.0) g/dL Plt Count 189 (150-450) 10^3/uL Neut % (Auto) 88.6 H (42.2-75.2) % Lymph % (Auto) 3.3 L (20.5-50.1) % [place] % (Auto) 7.9 (2-8) % Eos % (Auto) 0.1 L (1.0-3.0) % Baso % (Auto) 0.1 (0.0-1.0) % Sodium 132 L (135-145) mmol/L Potassium 4.4 (3.6-5.0) mmol/L Chloride 93 L (101-111) mmol/L Carbon Dioxide 32.0 H (21.0-31.0) mmol/L Anion Gap 11.4 BUN 20 H (7-18) mg/dL Creatinine 0.8 (0.6-1.3) mg/dL Est Cr Clr Drug Dosing 65.95 mL/min Estimated GFR (MDRD) > 60 Glucose 94 (74-105) mg/dL Calcium 8.9 (8.4-10.2) mg/dl [facility] Results - Last 24 hrs: Microbiology 11/04/18 15:13 Gram Stain - Final Sputum - Induced Sputum Culture - Preliminary 11/04/18 12:15 Aerobic Blood Culture - Preliminary Blood NO GROWTH AFTER 1 DAY Anaerobic Blood Culture - Preliminary NO GROWTH AFTER 1 DAY 11/04/18 12:13 Aerobic Blood Culture - Preliminary Blood NO GROWTH AFTER 1 DAY Anaerobic Blood Culture - Preliminary NO GROWTH AFTER 1 DAY Med Orders - Current: Current Medications Acetaminophen (Tylenol) 650 mg PO Q4H PRN PRN Reason: Pain (mild 1-3 )/fever Last Admin: 11/05/18 21:44 Dose: 650 mg Albuterol (Proventil Neb Soln) 0.63 mg NEB Q4HRRT PRN PRN Reason: Shortness of Breath Last Admin: 11/05/18 12:49 Dose: 0.63 mg Albuterol (Proventil Hfa) 0 gm INH Q4H PRN PRN Reason: BREATHING Albuterol/Ipratropium (Duoneb 3.0-0.5 Mg/3 Ml) 3 ml NEB Q4HRRT [facility] Last Admin: 11/06/18 06:58 Dose: 3 ml Amlodipine Besylate (Norvasc) 5 mg PO DAILY [facility] Last Admin: 11/06/18 08:28 Dose: 5 mg Aspirin (Halfprin) 81 mg PO WITHBREAKFAST [facility] Last Admin: 11/06/18 08:28 Dose: 81 mg Azithromycin (Zithromax) 250 mg PO DAILY [facility] Stop: 11/09/18 09:01 Last Admin: 11/06/18 08:28 Dose: 250 mg Docusate Sodium (Colace) 100 mg PO DAILY PRN PRN Reason: Constipation Heparin Sodium (Porcine) (Heparin Sodium) 5,000 units SUBCUT Q8H [facility] Last Admin: 11/06/18 06:53 Dose: 5,000 units Ceftriaxone Sodium 1 gm/ (Sodium Chloride) 50 mls @ 100 mls/hr IV Q24H [facility] Last Admin: 11/05/18 13:09 Dose: 100 mls/hr Levothyroxine Sodium (Synthroid) 175 mcg PO ACBREAKFAST [facility] Last Admin: 11/06/18 06:53 Dose: 175 mcg Lisinopril (Prinivil) 40 mg PO DAILY [facility] Last Admin: 11/06/18 08:28 Dose: 40 mg Fluticasone/Umeclidin/Vilanter [ Trelegy Ellipta 100- 62.5-25] Inh 1 puff INH DAILY [facility] Last Admin: 11/06/18 08:30 Dose: 1 puff Prednisone (Prednisone) 40 mg PO WITHBREAKFAST [facility] Last Admin: 11/06/18 08:28 Dose: 40 mg Sodium Chloride (Saline Flush) 10 ml FLUSH ASDIRECTED PRN PRN Reason: Keep Vein Open Last Admin: 11/04/18 18:13 Dose: 10 ml Discontinued Medications Acetaminophen (Tylenol Extra Strength) 1,000 mg PO ONETIME ONE Stop: 11/04/18 13:35 Last Admin: 11/04/18 13:37 Dose: 1,000 mg Albuterol/Ipratropium (Duoneb 3.0-0.5 Mg/3 Ml) 3 ml NEB ONETIME ONE Stop: 11/04/18 12:08 Last Admin: 11/04/18 12:14 Dose: 3 ml Azithromycin (Zithromax) 500 mg PO DAILY@1400 [facility] Stop: 11/05/18 14:01 Last Admin: 11/05/18 13:10 Dose: 500 mg Ceftriaxone Sodium (Rocephin) Confirm Administered Dose 1 gm .ROUTE .STK-MED ONE Stop: 11/04/18 16:38 Last Admin: 11/04/18 16:59 Dose: Not Given Ceftriaxone Sodium 1 gm/ (Sodium Chloride) 50 mls @ 50 mls/hr IV ONETIME ONE Stop: 11/04/18 17:13 Last Admin: 11/04/18 16:42 Dose: 50 mls/hr Levofloxacin/Dextrose 500 mg/ (Premix) 100 mls @ 100 mls/hr IV ONETIME ONE Stop: 11/04/18 17:13 Last Admin: 11/04/18 16:48 Dose: 100 mls/hr Piperacillin Sod/Tazobactam (Sod 3.375 gm/ Sodium Chloride) 100 mls @ 200 mls/ hr IV Q6H [facility] Last Admin: 11/05/18 06:13 Dose: 200 mls/hr Levofloxacin/Dextrose 500 mg/ (Premix) 100 mls @ 100 mls/hr IV Q24H [facility] Iopamidol (Isovue-300 (61%)) 75 ml IVPUSH ONETIME ONE Stop: 11/04/18 14:50 Last Admin: 11/04/18 18:43 Dose: Not Given Iopamidol (Isovue-370 (76%)) 100 ml IVPUSH ONETIME ONE Stop: 11/04/18 15:17 Last Admin: 11/04/18 15:30 Dose: 82 ml Methylprednisolone Sodium Succinate (Solu-Medrol) 125 mg IVPUSH ONETIME ONE Stop: 11/04/18 12:13 Last Admin: 11/04/18 12:19 Dose: 125 mg Methylprednisolone Sodium Succinate (Solu-Medrol) 60 mg IVPUSH Q6H [facility] Last Admin: 11/05/18 13:07 Dose: Not Given Non-Formulary Medication (Albuterol) 2 puff INH ASDIRECTED PRN PRN Reason: breathing Ondansetron HCl (Zofran) 4 mg IV ONETIME ONE Stop: 11/04/18 12:13 Last Admin: 11/04/18 12:18 Dose: 4 mg - Exam General: Reports: Alert, Oriented HEENT: Reports: Pupils Equal Neck: Reports: Supple Lungs: Reports: Clear to Auscultation Cardiovascular: Reports: Regular Rate, Regular Rhythm GI/Abdominal Exam: Normal Bowel Sounds, Soft, Non-Tender
[2018-11-06] MEDS: cefTRIAXone 1 GM in Sodium Chloride 0.9% 50 ML IV SCH (11:49)
[2018-11-06 14:22] VITALS: BP 121/74
== END 2018-11-06 15:45 | disposition home or self-care (01) | DRG 190 ==
LOC: DL.ED 11:49 → UNDOADMIN 16:48 → DL.MS 16:48 → EEVIPCON 17:30 → DL.MS 17:30
PROVIDERS: ADMIT Internal Medicine Nephrology; ATTEND Hospitalist
DX: J44.0 Chronic obstructive pulmonary disease with (acute) lower respiratory infection (principal); J18.1 Lobar pneumonia, unspecified organism; J44.1 Chronic obstructive pulmonary disease with (acute) exacerbation; I10 Essential (primary) hypertension; E03.9 Hypothyroidism, unspecified; M19.91 Primary osteoarthritis, unspecified site; R09.02 Hypoxemia; R11.0 Nausea; Z79.899 Other long term (current) drug therapy; I25.2 Old myocardial infarction; Z99.81 Dependence on supplemental oxygen; Z79.82 Long term (current) use of aspirin; Z87.891 Personal history of nicotine dependence; Z88.5 Allergy status to narcotic agent; Z86.14 Personal history of Methicillin resistant Staphylococcus aureus infection
CPT/HCPCS: 36415; 71045; 71260; 80048; 80053; 81003; 83605; 83880; 84484; 85025; 85379; 87040; 87070; 87077; 87186; 87205; 93005; 94640; 94760; 96365; 96375; 99285-25; A9270-GY; J0696; J1644; J1956; J2405; J2543; J2920; J2930; J7050; J7620-GY; Q9967

== ENCOUNTER 2019-11-19 13:26 | Inpatient (IN) | payer MEDICARE ==
--- NOTE | 2019-11-19 13:29 | EDM.PDOC ---
ED HPI GENERAL MEDICAL PROBLEM - General Chief Complaint: Respiratory Problem Stated Complaint: AMBULANCE Time Seen by Provider: 11/19/19 13:27 Source of Information: Reports: Patient, EMS, Old Records, RN, RN Notes Reviewed History Limitations: Reports: No Limitations - History of Present Illness INITIAL COMMENTS - FREE TEXT/NARRATIVE: Pt arrives from home by [facility] with report of 2 weeks of progressively worsening generalized weakness, and shortness of breath. Pt has Hx of COPD and is home supplemental oxygen dependent at 2 liters at rest and increases to 6 liters if he gets up or has to walk in the house. Pt became too weak and dyspneic to get up the stairs at home to access his bedroom and bathroom and began sleeping in recliner on the ground floor a day or two ago. This morning the pt's noticed his feet looked dark blue and he had a decreased level of consciousness so she called 911. Pt has not had a cough, fever, chest pain, or any recent travel or exposure to any confirmed or suspected Covid-19 cases. Pt wishes to have medical treatment, but wishes to be DNR/DNI. confirms that she also agrees with the DNR/DNI status. The ambulance crew reports pt had oxygen saturations of 67% on 2L on their initial contact with the pt today, and increased to 91% on a non-rebreather mask. 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, Oxygen - Related Data Allergies Allergy/AdvReac Type Severity Reaction Status Date / Time hydrocodone AdvReac Nausea and Verified 11/19/19 13:45 Vomiting Home Meds: Home Meds Levothyroxine Sodium [Synthroid] 150 mcg PO ACBREAKFAST 07/25/15 [History] Lisinopril 40 mg PO DAILY 07/25/15 [History] Aspirin [Halfprin] 81 mg PO WITHBREAKFAST #30 tab.ec 07/29/15 [Rx] Calcium Carbonate/Vitamin D3 [Calcium 600 + Vit D 400 Softgl] 2 each PO DAILY [History] Albuterol Sulfate 1 unit INH Q4HR PRN 06/27/18 [History] Albuterol [Ventolin HFA] 2 puff INH Q4HR PRN 06/27/18 [History] amLODIPine Besylate [Amlodipine Besylate] 5 mg PO DAILY 06/27/18 [History] Fluticasone/Umeclidin/Vilanter [Trelegy Ellipta 100-62.5-25 MCG] 1 puff INH DAILY 11/04/18 [History] Past Medical History HEENT History: Reports: Other (See Below) Other HEENT History: deviated septum Cardiovascular History: Reports: Hypertension Respiratory History: Reports: Bronchitis, Recurrent, COPD, Pneumonia, Recurrent , SOB Other Respiratory History: wears home O2 Genitourinary History: Reports: Other (See Below) Other Genitourinary History: elevated PSA Musculoskeletal History: Reports: Fracture Endocrine/Metabolic History: Reports: Hypothyroidism Oncologic (Cancer) History: Reports: Other (See Below) Other Oncologic History: throat - Infectious Disease History Infectious Disease History: Reports: MRSA - Past Surgical History Musculoskeletal Surgical History: Reports: Other (See Below) Other Musculoskeletal Surgeries/Procedures:: right hip femoral neck fracture- hemiarthroplasty Social & Family History - Family History Family Medical History: Noncontributory - Tobacco Use Smoking Status *Q: Former Smoker Tobacco Use Within Last Twelve Months: Cigarettes Years of Tobacco use: 50 - Caffeine Use Caffeine Use: Reports: Coffee, Soda - Living Situation & Occupation Living situation: Reports: , with Spouse Occupation: Retired ED ROS GENERAL - Review of Systems Review Of Systems: Comprehensive ROS is negative, except as noted in HPI. ED EXAM, GENERAL - Physical Exam Exam: See Below Exam Limited By: No Limitations General Appearance: Alert, Lethargic, Moderate Distress (Respiratory), Thin, Cachetic, Other (Chronically ill appearing) Eye Exam: Bilateral Eye: Normal Inspection Ears: Normal External Exam, Hearing Grossly Normal Nose: Normal Inspection, No Blood Throat/Mouth: No Airway Compromise, Other (Dry oral mucosa) Head: Atraumatic, Normocephalic Neck: Normal Inspection, Supple, Non-Tender, Full Range of Motion Respiratory/Chest: Respiratory Distress (Labored breathing), Decreased Breath Sounds, Crackles, Rales, Wheezing, Accessory Muscle Use. No: Rhonchi, Stridor Cardiovascular: Regular Rate, Rhythm, Other (Pedal edema) GI/Abdominal: Soft, Non-Tender, Abnormal Bowel Sounds (Hypoactive bowel sounds) (Male) Exam: Deferred Rectal (Males) Exam: Deferred Extremities: Pedal Edema (B/L feet only). No: Lewis's Sign Neurological: Alert, Oriented (to person and place), Other (Generalized weakness ) Skin Exam: Warm, Dry EKG INTERPRETATION EKG Date: 11/19/19 Time: 13:36 Rhythm: Other (SR) Rate (Beats/Min): 86 [place]: LAD-Left [place] Deviation P-Wave: Present QRS: Other (motion artifact) ST-T: Other (motion artifact) QT: Normal Comparison: No Change Course - Vital Signs Last Recorded V/S: Last Vital Signs Temp 96.9 F 11/19/19 13:34 Pulse 86 11/19/19 13:53 Resp 20 11/19/19 13:34 BP 134/77 11/19/19 13:34 Pulse Ox 95 11/19/19 13:35 - Orders/Labs/Meds Orders: Active Orders 24 hr Category Date Time Status EKG 12 Lead [EKG Documentation Completion] [RC] STAT Care 11/19/19 13:31 Active Peripheral IV Care [RC] . DIRECTED Care 11/19/19 13:30 Active RT Aerosol Therapy [RC] ASDIRECTED Care 11/19/19 13:30 Active CULTURE BLOOD [BC] Stat Lab 11/19/19 13:45 Results CULTURE BLOOD [BC] Stat Lab 11/19/19 14:36 Received UA RFX TERA AND CULT IF INDIC [URIN] Stat Lab 11/19/19 13:30 Ordered Sodium Chloride 0.9% [Saline Flush] Med 11/19/19 13:30 Active 10 ml FLUSH ASDIRECTED PRN Blood Culture x2 Reflex Set [OM.PC] Stat Oth 11/19/19 13:29 Ordered Isolation [COMM] Routine Oth 11/19/19 13:30 Active Peripheral IV Insertion Adult [OM.PC] Stat Oth 11/19/19 13:29 Ordered Medication Orders Sodium Chloride (Saline Flush) 10 ml FLUSH ASDIRECTED PRN PRN Reason: Keep Vein Open Last Admin: 11/19/19 13:49 Dose: 10 ml Labs: Laboratory Tests 11/19/19 11/19/19 11/19/19 Range/Units 13:45 13:45 13:45 WBC 12.3 H (5.0-10.0) 10^3/uL RBC 4.25 L (4.6-6.2) 10^6/uL Hgb 12.4 L (14.0-18.0) g/dL Hct 42.8 (40.0-54.0) % MCV 100.7 H D (80-100) fL MCH 29.2 (27.0-34.0) pg MCHC 29.0 L (33.0-35.0) g/dL Plt Count 325 D (150-450) 10^3/uL Neut % (Auto) 81.9 H (42.2-75.2) % Lymph % (Auto) 3.2 L (20.5-50.1) % [place] % (Auto) 14.8 H (2-8) % Eos % (Auto) 0.0 L (1.0-3.0) % Baso % (Auto) 0.1 (0.0-1.0) % ABG pH (7.35-7.45) ABG pCO2 (35-45) mmHg ABG pO2 (70-100) mmHg ABG HCO3 (22-26) mmol/L ABG O2 Saturation (95-100) % ABG Base Excess ((-2)-(+3)) mmol/L Augustus Test O2 Delivery Device Oxygen Flow Rate Sodium 141 (136-145) mmol/L Potassium 5.1 (3.5-5.1) mmol/L Chloride 95 L (98-107) mmol/L Carbon Dioxide 45 H* (21-32) mmol/L Anion Gap 6.1 L (7-13) mEq/L BUN 35 H (7-18) mg/dL Creatinine 1.14 (0.70-1.30) mg/dL Est Cr Clr Drug Dosing TNP Estimated GFR (MDRD) > 60 BUN/Creatinine Ratio 30.7 (No establ ref range) Glucose 139 H (74-99) mg/dL Lactic Acid 2.4 H* (0.4-2.0) mmol/L Calcium 10.8 H (8.5-10.1) mg/dL Total Bilirubin 0.2 (0.2-1.0) mg/dL AST 20 (15-37) U/L ALT 27 (16-63) U/L Alkaline Phosphatase 63 (46-116) U/L Troponin I < 0.017 (0.000-0.056) ng/mL B-Natriuretic Peptide 189 H (0-100) pg/ml Total Protein 9.5 H (6.4-8.2) g/dL Albumin 2.6 L (3.4-5.0) g/dL Globulin 6.9 Albumin/Globulin Ratio 0.38 03/31/20 Range/Units 14:35 WBC (5.0-10.0) 10^3/uL RBC (4.6-6.2) 10^6/uL Hgb (14.0-18.0) g/dL Hct (40.0-54.0) % MCV (80-100) fL MCH (27.0-34.0) pg MCHC (33.0-35.0) g/dL Plt Count (150-450) 10^3/uL Neut % (Auto) (42.2-75.2) % Lymph % (Auto) (20.5-50.1) % [place] % (Auto) (2-8) % Eos % (Auto) (1.0-3.0) % Baso % (Auto) (0.0-1.0) % ABG pH 7.29 L (7.35-7.45) ABG pCO2 111 H* (35-45) mmHg ABG pO2 111 H (70-100) mmHg ABG HCO3 51.6 H (22-26) mmol/L ABG O2 Saturation 96 (95-100) % ABG Base Excess 21 H ((-2)-(+3)) mmol/L Augustus Test pos O2 Delivery Device Non rebr mask Oxygen Flow Rate 12 Sodium (136-145) mmol/L Potassium (3.5-5.1) mmol/L Chloride (98-107) mmol/L Carbon Dioxide (21-32) mmol/L Anion Gap (7-13) mEq/L BUN (7-18) mg/dL Creatinine (0.70-1.30) mg/dL Est Cr Clr Drug Dosing Estimated GFR (MDRD) BUN/Creatinine Ratio (No establ ref range) Glucose (74-99) mg/dL Lactic Acid (0.4-2.0) mmol/L Calcium (8.5-10.1) mg/dL Total Bilirubin (0.2-1.0) mg/dL AST (15-37) U/L ALT (16-63) U/L Alkaline Phosphatase (46-116) U/L Troponin I (0.000-0.056) ng/mL B-Natriuretic Peptide (0-100) pg/ml Total Protein (6.4-8.2) g/dL Albumin (3.4-5.0) g/dL Globulin Albumin/Globulin Ratio Meds: Medications Generic Name Dose Route Start Last Admin Trade Name Freq PRN Reason Stop Dose Admin Sodium Chloride 10 ml 11/19/19 13:30 11/19/19 13:49 Saline Flush FLUSH 10 ml ASDIRECTED PRN Administration Keep Vein Open Discontinued Medications Generic Name Dose Route Start Last Admin Trade Name Freq PRN Reason Stop Dose Admin Albuterol/Ipratropium 3 ml 11/19/19 13:30 11/19/19 13:46 Duoneb 3.0-0.5 Mg/3 Ml NEB 11/19/19 13:31 3 ml ONETIME ONE Administration Piperacillin Sod/Tazobactam 100 mls @ 200 mls/hr 11/19/19 13:54 11/19/19 14: 06 Sod 3.375 gm/ Sodium Chloride IV 11/19/19 14:23 200 mls/hr ONETIME ONE Administration Methylprednisolone Sodium Succinate 125 mg 11/19/19 13:30 11/19/19 13:48 Solu-Medrol IVPUSH 11/19/19 13:31 125 mg ONETIME ONE Administration - Radiology Interpretation Free Text/Narrative:: Chest XR: RLL pneumonia, COPD, see Rad. report. - Re-Assessments/Exams Free Text/Narrative Re-Assessment/Exam: 11/19/19 14:56 Pt and wish to have pt admitted here and not be transferred, and wish to try general medical care, but remain DNR/DNI. accepts that the pt may change to comfort care if he fails conservative medical treatment. Departure - Departure Time of Disposition: 14:32 (pt admitted to Dr. Murray) Disposition: Admitted As Inpatient 66 Condition: Poor, Serious Clinical Impression: COPD with acute exacerbation Pneumonia Qualifiers: Pneumonia type: due to unspecified organism Laterality: right Lung location: lower lobe of lung Qualified Code(s): J18.9 - Pneumonia, unspecified organism Acute on chronic respiratory failure Qualifiers: Respiratory failure complication: hypoxia and hypercapnia Qualified Code(s): J96.21 - Acute and chronic respiratory failure with hypoxia - Discharge Information *PRESCRIPTION DRUG MONITORING PROGRAM REVIEWED*: Not Applicable *COPY OF PRESCRIPTION DRUG MONITORING REPORT IN PATIENT KARIME: Not Applicable Forms: ED Department Discharge Sepsis Event Note - Focused Exam Vital Signs: Vital Signs Temp Pulse Resp BP Pulse Ox Pulse Ox 11/19/19 13:53 86 11/19/19 13:35 95 11/19/19 13:34 96.9 F 86 20 134/77 93 L Date Exam was Performed: 11/19/19 Time Exam was Performed: 14:55 - My Orders Last 24 Hours: My Active Orders 11/19/19 13:29 Blood Culture x2 Reflex Set [OM.PC] Stat Peripheral IV Insertion Adult [OM.PC] Stat 11/19/19 13:30 Peripheral IV Care [RC] . DIRECTED RT Aerosol Therapy [RC] ASDIRECTED UA RFX TERA AND CULT IF INDIC [URIN] Stat Sodium Chloride 0.9% [Saline Flush] 10 ml FLUSH ASDIRECTED PRN Isolation [COMM] Routine 11/19/19 13:31 EKG 12 Lead [EKG Documentation Completion] [RC] STAT 11/19/19 13:45 CULTURE BLOOD [BC] Stat 11/19/19 14:36 CULTURE BLOOD [BC] Stat - Assessment/Plan Last 24 Hours: My Active Orders 11/19/19 13:29 Blood Culture x2 Reflex Set [OM.PC] Stat Peripheral IV Insertion Adult [OM.PC] Stat 11/19/19 13:30 Peripheral IV Care [RC] . DIRECTED RT Aerosol Therapy [RC] ASDIRECTED UA RFX TERA AND CULT IF INDIC [URIN] Stat Sodium Chloride 0.9% [Saline Flush] 10 ml FLUSH ASDIRECTED PRN Isolation [COMM] Routine 11/19/19 13:31 EKG 12 Lead [EKG Documentation Completion] [RC] STAT 11/19/19 13:45 CULTURE BLOOD [BC] Stat 11/19/19 14:36 CULTURE BLOOD [BC] Stat
[2019-11-19] MEDS ORDERED: methylPREDNISolone Sodium Succinate 125 MG/2 ML SDV IVPUSH ONE (13:30)
[2019-11-19] MEDS ORDERED: Albuterol/Ipratropium 3.0-0.5 MG/3 ML Neb Soln NEB ONE (13:30)
[2019-11-19] MEDS: Sodium Chloride 0.9% 10 ML Syringe FLUSH PRN ×2 (13:49→23:55)
[2019-11-19] MEDS ORDERED: Piperacillin/Tazobactam 3.375 GM in Sodium Chloride 0.9% 100 ML IV ONE (13:54)
[2019-11-19 14:16] LABS: ANION GAP 6.1 mEq/L (7-13); CHLORIDE,CL 95 mmol/L (98-107); SODIUM,NA 141 mmol/L (136-145)
--- NOTE | 2019-11-19 14:24 | CR ---
EXAMINATION: Chest 1V Frontal SEX: Male AGE: 74 years CLINICAL HISTORY: 74-year-old male experiencing cough and respiratory distress. Comparison exam 04 November 2018. INTERPRETATION: Abnormal. 1. *Asymmetric dense new right lower lobe pneumonic like consolidation with ipsilateral dependent pleural effusion. Aspiration? Note: This radiographic appearance not typical of the current Covid19 lung infections which are not accompanied with "pleural effusion" or lymphadenopathy (usual characteristic of the virus is a peripheral multilobar "groundglass" infiltrate). 2. Normal cardiac silhouette without cephalization of vascular flow, alveolar edema or dependent pleural effusion on the left. 3. No lung mass, hilar lymphadenopathy (patient rotated) or other focal lobar consolidation. 4. No pneumothorax or pneumomediastinum. Midline tracheal airway and bronchi unremarkable. CONCLUSION: Right lower lobe pneumonia. CONCLUSION:
[2019-11-19 14:51] LABS: BASE EXCESS ARTERIAL 21 mmol/L ((-2)-(+3)); BICARBONATE,ARTERIAL 51.6 mmol/L (22-26); O2 DELIVERY DEVICE NON REBR MASK; O2 SATURATION ARTERIAL 96 % (95-100); PO2 ARTERIAL 111 mmHg (70-100)
[2019-11-19 14:54] LABS: ALLEN TEST pos; O2 FLOW RATE 12; PCO2 ARTERIAL 111 mmHg (35-45)
[2019-11-19] MEDS ORDERED: Acetaminophen 325 MG Tab PO PRN (15:50)
[2019-11-19] MEDS ORDERED: Magnesium Hydroxide 400 MG/5 ML Susp 30 ML Cup PO PRN (15:50)
[2019-11-19] MEDS ORDERED: Docusate Sodium 100 MG Cap PO PRN (15:50)
[2019-11-19] MEDS ORDERED: Albuterol/Ipratropium 3.0-0.5 MG/3 ML Neb Soln NEB PRN (15:50)
[2019-11-19] MEDS ORDERED: Albuterol 6.7 GM Inhaler INH PRN (15:57)
--- NOTE | 2019-11-19 15:58 | PCM.HP ---
H&P History of Present Illness - General Date of Service: 11/19/19 Admit Problem/Dx: Admission Diagnosis/Problem Admission Diagnosis/Problem Pneumonia Source of Information: EMS Notes Reviewed, Family History Limitations: Reports: Other (lethalgic) - History of Present Illness Initial Comments - Free Text/Narative: Zahra is 74 y/o M with past medical history of COPD on home oxygen 2 L at rest and 6 L with activity, hypertension, hypothyroidism. Patient was brought to the ED for evaluation of increasing shortness of breath requiring increased supplemental oxygen. Patient appears lethargic and on nonrebreather and unable to provide history. History of from spouse by bedside. As per spouse patient has been getting shortness of breath for the past 2 weeks. This has gotten progressively worse over the past few days. Patient has been unable to climb stairs to get to bedroom upstairs. He is weak and tired all the time. Today spouse turned down his oxygen to 1 L in the morning when patient was still asleep in the recliner down stairs and noted patient was cyanotic to bilateral toes so she activated EMS who brought patient to the ED. As per EMS patient was hypoxic with saturation of 67% on 2 L. He was placed on nonrebreather saturation with saturation improved to 91%. Spouse denies increased cough, leg swelling, chest pain. She reports subjective fever and chills. She also notes wheezing. She also notes patient has poor appetite. He has no recent ill contacts or recent travel. In the ED labs showed WBC 12.3, pH 7.29, PCO2 111, bicarbonate 51.6, calcium 10.8, lactic acid 2.4, BNP 118. Chest x-ray showed right lower lobe consolidation. As per the ED provider patient and spouse were provided the option of transfer to higher level of care and giving poor prognosis. Spouse said patient is DNI/DNR and wants to remain so. She didn't declined transfer to higher level of care. Spouse agreed that the pt may change to comfort care if he fails conservative medical treatment. Onset of Symptoms: Reports: Gradual Duration of Symptoms: Reports: Week(s):, Getting Worse Location: Reports: Chest Quality: Reports: Ache Severity: Moderate Improves with: Reports: None Worsens with: Reports: Movement Context: Reports: Activity/Exercise Associated Symptoms: Reports: Cough, Fever/Chills, Shortness of Breath - Related Data Allergies/Adverse Reactions: Allergies Allergy/AdvReac Type Severity Reaction Status Date / Time hydrocodone AdvReac Nausea and Verified 11/19/19 13:45 Vomiting Home Medications: Home Meds Levothyroxine Sodium [Synthroid] 150 mcg PO ACBREAKFAST 07/25/15 [History] Lisinopril 40 mg PO DAILY 07/25/15 [History] Aspirin [Halfprin] 81 mg PO WITHBREAKFAST #30 tab.ec 07/29/15 [Rx] Calcium Carbonate/Vitamin D3 [Calcium 600 + Vit D 400 Softgl] 2 each PO DAILY [History] Albuterol Sulfate 1 unit INH Q4HR PRN 06/27/18 [History] Albuterol [Ventolin HFA] 2 puff INH Q4HR PRN 06/27/18 [History] amLODIPine Besylate [Amlodipine Besylate] 5 mg PO DAILY 06/27/18 [History] Fluticasone/Umeclidin/Vilanter [Trelegy Ellipta 100-62.5-25 MCG] 1 puff INH DAILY 11/04/18 [History] Past Medical History HEENT History: Reports: Other (See Below) Other HEENT History: deviated septum Cardiovascular History: Reports: Hypertension Respiratory History: Reports: Bronchitis, Recurrent, COPD, Pneumonia, Recurrent , SOB Other Respiratory History: wears home O2 Gastrointestinal History: Reports: None Genitourinary History: Reports: Other (See Below) Other Genitourinary History: elevated PSA Musculoskeletal History: Reports: Fracture Neurological History: Reports: None Psychiatric History: Reports: None Endocrine/Metabolic History: Reports: Hypothyroidism Hematologic History: Reports: None Immunologic History: Reports: None Oncologic (Cancer) History: Reports: Other (See Below) Other Oncologic History: throat Dermatologic History: Reports: None - Infectious Disease History Infectious Disease History: Reports: MRSA - Past Surgical History Musculoskeletal Surgical History: Reports: Other (See Below) Other Musculoskeletal Surgeries/Procedures:: right hip femoral neck fracture- hemiarthroplasty Social & Family History - Family History Family Medical History: Noncontributory - Tobacco Use Smoking Status *Q: Former Smoker Years of Tobacco use: 50 Used Tobacco, but Quit: Yes Month/Year Tobacco Last Used: 00 - Caffeine Use Caffeine Use: Reports: Coffee, Soda - Recreational Drug Use Recreational Drug Use: No - Living Situation & Occupation Living situation: Reports: , with Spouse Occupation: Retired H&P Review of Systems - Review of Systems: Review Of Systems: See Below General: Reports: Fever, Chills, Malaise, Weakness, Fatigue, Decreased Appetite HEENT: Reports: No Symptoms Pulmonary: Reports: Shortness of Breath, Wheezing, Cough Cardiovascular: Reports: No Symptoms Gastrointestinal: Reports: No Symptoms Genitourinary: Reports: No Symptoms Musculoskeletal: Reports: No Symptoms Skin: Reports: No Symptoms Psychiatric: Reports: No Symptoms Neurological: Reports: No Symptoms Hematologic/Lymphatic: Reports: No Symptoms Immunologic: Reports: No Symptoms Exam - Exam Exam: See Below - Vital Signs Vital Signs: Last Vital Signs Temp 96.9 F 11/19/19 13:34 Pulse 86 11/19/19 13:53 Resp 20 11/19/19 13:34 BP 134/77 11/19/19 13:34 Pulse Ox 95 11/19/19 13:35 Weight: 115 lb - Exam Quality Assessment: Supplemental Oxygen, DVT Prophylaxis General: Lethargic HEENT: PERRLA, Hearing Intact, Mucosa Moist & [place], Nares Patent, Normal Nasal Septum, Posterior Pharynx Clear, Conjunctiva Clear, EOMI, EACs Clear, TMs Clear Neck: Supple, Trachea Midline, 2 Lungs: Decreased Breath Sounds, Wheezing Cardiovascular: Regular Rate, Regular Rhythm GI/Abdominal Exam: Normal Bowel Sounds, Soft, Non-Tender, No Organomegaly, No Distention, No Abnormal Bruit, No Mass, Pelvis Stable (Male) Exam: No Hernia, Normal Inspection, Normal Prostate, Circumcised Rectal (Males) Exam: Deferred Back Exam: Normal Inspection, Full Range of Motion, NT Extremities: Normal Inspection, Normal Range of Motion, Non-Tender, No Pedal Edema, Normal Capillary Refill Skin: Warm, Dry, Intact Neurological: Cranial Nerves Intact, Reflexes Equal Bilateral Neuro Extensive - Mental Status: Other (lethelgic) Psychiatric: Alert, Other (lethalgic) - Patient Data Lab Results Last 24 hrs: Laboratory Results - last 24 hr 11/19/19 11/19/19 11/19/19 Range/Units 13:45 13:45 13:45 WBC 12.3 H (5.0-10.0) 10^3/uL RBC 4.25 L (4.6-6.2) 10^6/uL Hgb 12.4 L (14.0-18.0) g/dL Hct 42.8 (40.0-54.0) % MCV 100.7 H D (80-100) fL MCH 29.2 (27.0-34.0) pg MCHC 29.0 L (33.0-35.0) g/dL Plt Count 325 D (150-450) 10^3/uL Neut % (Auto) 81.9 H (42.2-75.2) % Lymph % (Auto) 3.2 L (20.5-50.1) % [place] % (Auto) 14.8 H (2-8) % Eos % (Auto) 0.0 L (1.0-3.0) % Baso % (Auto) 0.1 (0.0-1.0) % ABG pH (7.35-7.45) ABG pCO2 (35-45) mmHg ABG pO2 (70-100) mmHg ABG HCO3 (22-26) mmol/L ABG O2 Saturation (95-100) % ABG Base Excess ((-2)-(+3)) mmol/L Augustus Test O2 Delivery Device Oxygen Flow Rate Sodium 141 (136-145) mmol/L Potassium 5.1 (3.5-5.1) mmol/L Chloride 95 L (98-107) mmol/L Carbon Dioxide 45 H* (21-32) mmol/L Anion Gap 6.1 L (7-13) mEq/L BUN 35 H (7-18) mg/dL Creatinine 1.14 (0.70-1.30) mg/dL Est Cr Clr Drug Dosing TNP Estimated GFR (MDRD) > 60 BUN/Creatinine Ratio 30.7 (No establ ref range) Glucose 139 H (74-99) mg/dL Lactic Acid 2.4 H* (0.4-2.0) mmol/L Calcium 10.8 H (8.5-10.1) mg/dL Total Bilirubin 0.2 (0.2-1.0) mg/dL AST 20 (15-37) U/L ALT 27 (16-63) U/L Alkaline Phosphatase 63 (46-116) U/L Troponin I < 0.017 (0.000-0.056) ng/mL B-Natriuretic Peptide 189 H (0-100) pg/ml Total Protein 9.5 H (6.4-8.2) g/dL Albumin 2.6 L (3.4-5.0) g/dL Globulin 6.9 Albumin/Globulin Ratio 0.38 //20 Range/Units 14:35 WBC (5.0-10.0) 10^3/uL RBC (4.6-6.2) 10^6/uL Hgb (14.0-18.0) g/dL Hct (40.0-54.0) % MCV (80-100) fL MCH (27.0-34.0) pg MCHC (33.0-35.0) g/dL Plt Count (150-450) 10^3/uL Neut % (Auto) (42.2-75.2) % Lymph % (Auto) (20.5-50.1) % [place] % (Auto) (2-8) % Eos % (Auto) (1.0-3.0) % Baso % (Auto) (0.0-1.0) % ABG pH 7.29 L (7.35-7.45) ABG pCO2 111 H* (35-45) mmHg ABG pO2 111 H (70-100) mmHg ABG HCO3 51.6 H (22-26) mmol/L ABG O2 Saturation 96 (95-100) % ABG Base Excess 21 H ((-2)-(+3)) mmol/L Augustus Test pos O2 Delivery Device Non rebr mask Oxygen Flow Rate 12 Sodium (136-145) mmol/L Potassium (3.5-5.1) mmol/L Chloride (98-107) mmol/L Carbon Dioxide (21-32) mmol/L Anion Gap (7-13) mEq/L BUN (7-18) mg/dL Creatinine (0.70-1.30) mg/dL Est Cr Clr Drug Dosing Estimated GFR (MDRD) BUN/Creatinine Ratio (No establ ref range) Glucose (74-99) mg/dL Lactic Acid (0.4-2.0) mmol/L Calcium (8.5-10.1) mg/dL Total Bilirubin (0.2-1.0) mg/dL AST (15-37) U/L ALT (16-63) U/L Alkaline Phosphatase (46-116) U/L Troponin I (0.000-0.056) ng/mL B-Natriuretic Peptide (0-100) pg/ml Total Protein (6.4-8.2) g/dL Albumin (3.4-5.0) g/dL Globulin Albumin/Globulin Ratio Result Diagrams: 11/19/19 13:45 11/19/19 13:45 Shant Results Last 24 hrs: Microbiology 11/19/19 13:45 Anaerobic Blood Culture - Final Blood - Venous 11/19/19 13:45 Influenza Type A Antigen Screen - Final Nasal, Unspecified NEGATIVE INFLUENZA A VIRUS AG REFERENCE RANGE: NEGATIVE Influenza Type B Antigen Screen - Final NEGATIVE INFLUENZA B VIRUS AG REFERENCE RANGE: NEGATIVE Problem List Initiated/Reviewed/Updated: Yes Orders Last 24hrs: Active Orders 24 hr Category Date Time Status Admission Diagnosis [ADT] Routine ADT 11/19/19 14:59 Ordered Admission Status [Patient Status] [ADT] Routine ADT 11/19/19 14:55 Active Bedrest Bedside Commode [RC] ASDIRECTED Care 11/19/19 15:50 Active EKG 12 Lead [EKG Documentation Completion] [RC] STAT Care 11/19/19 13:31 Active Height and Weight [RC] DAILY Care 11/19/19 15:50 Active Intake and Output [RC] QSHIFT Care 11/19/19 15:50 Active Notify Provider Vital Signs [RC] ASDIRECTED Care 11/19/19 15:51 Active Oxygen Therapy [RC] PRN Care 11/19/19 15:50 Active Peripheral IV Care [RC] . DIRECTED Care 11/19/19 13:30 Active Pulse Oximetry [RC] PRN Care 11/19/19 15:50 Active RT Aerosol Therapy [RC] ASDIRECTED Care 11/19/19 13:30 Active RT Aerosol Therapy [RC] ASDIRECTED Care 11/19/19 15:53 Active VTE/DVT Education [RC] PER UNIT ROUTINE Care 11/19/19 15:50 Active Vital Signs [RC] Q4H Care 11/19/19 15:50 Active OT Evaluation and Treatment [CONS] Routine Cons 11/19/19 15:50 Active PT Evaluation and Treatment [CONS] Routine Cons 11/19/19 15:50 Active Respiratory Care Assess and Treatment [CONS] Routine Cons 11/19/19 15:50 Active Nothing per Oral Now Diet [DIET] Diet 11/19/19 Dinner Active BASIC METABOLIC PANEL,BMP [CHEM] DAILY Lab 11/20/19 07:00 Ordered BASIC METABOLIC PANEL,BMP [CHEM] DAILY Lab 11/21/19 07:00 Ordered BASIC METABOLIC PANEL,BMP [CHEM] DAILY Lab 11/22/19 07:00 Ordered CBC W/O DIFF,HEMOGRAM [HEME] DAILY Lab 11/20/19 07:00 Ordered CBC W/O DIFF,HEMOGRAM [HEME] DAILY Lab 11/21/19 07:00 Ordered CBC W/O DIFF,HEMOGRAM [HEME] DAILY Lab 11/22/19 07:00 Ordered CULTURE BLOOD [BC] Stat Lab 11/19/19 13:45 Results CULTURE BLOOD [BC] Stat Lab 11/19/19 14:36 Received CULTURE SPUTUM + SMEAR [RM] Stat Lab 11/19/19 15:50 Ordered GRAM STAIN [RM] Routine Lab 11/19/19 15:50 Ordered MAGNESIUM [CHEM] Routine Lab 11/19/19 15:50 Ordered PHOSPHORUS [CHEM] Routine Lab 11/19/19 15:50 Ordered UA RFX SHANT AND CULT IF INDIC [URIN] Stat Lab 11/19/19 13:30 Ordered Acetaminophen [Tylenol] Med 11/19/19 15:50 Ordered 650 mg PO Q4H PRN Albuterol [Proventil HFA] Med 11/19/19 15:57 Ordered 2 puff INH Q4HR PRN Albuterol/Ipratropium [DuoNeb 3.0-0.5 MG/3 ML] Med 11/19/19 15:50 Ordered 3 ml NEB Q4H PRN Aspirin [Halfprin] Med 11/20/19 08:00 Ordered 81 mg PO WITHBREAKFAST Calcium Carbonate/Vitamin D3 [Calcium 600 + Vit D 400 Med 11/20/19 09:00 Ordered Softgl] 2 each PO DAILY Dextrose 5%-0.45% NaCl [Dextrose 5%-1/2 NS] 1,000 ml Med 11/19/19 16:00 Ordered IV ASDIRECTED Docusate Sodium [Colace] Med 11/19/19 15:50 Ordered 100 mg PO BID PRN Enoxaparin [Lovenox] Med 11/20/19 09:00 Ordered 40 mg SUBCUT DAILY Fluticasone/Umeclidin/Vilanter [Trelegy Ellipta 100-62. Med 11/20/19 09:00 Ordered 5-25 MCG] 1 puff INH DAILY Levothyroxine Sodium [Synthroid] Med 11/20/19 06:00 Ordered 150 mcg PO ACBREAKFAST Lisinopril [Lisinopril] Med 11/20/19 09:00 Ordered 40 mg PO DAILY Magnesium Hydroxide [Milk of Magnesia] Med 11/19/19 15:50 Ordered 30 ml PO Q12H PRN Sodium Chloride 0.9% [Normal Saline] 1,000 ml Med 11/19/19 16:00 Ordered IV .BOLUS Sodium Chloride 0.9% [Saline Flush] Med 11/19/19 13:30 Active 10 ml FLUSH ASDIRECTED PRN amLODIPine [Norvasc] Med 11/20/19 09:00 Ordered 5 mg PO DAILY Blood Culture x2 Reflex Set [OM.PC] Stat Oth 11/19/19 13:29 Ordered Isolation [COMM] Routine Oth 11/19/19 13:30 Active Peripheral IV Insertion Adult [OM.PC] Stat Oth 11/19/19 13:29 Ordered Resuscitation Status Routine Resus Stat 11/19/19 15:50 Ordered Medication Orders Acetaminophen (Tylenol) 650 mg PO Q4H PRN PRN Reason: Pain (Mild 1-3)/fever Albuterol (Proventil Hfa) gm INH Q4HR PRN PRN Reason: breathing Albuterol/Ipratropium (Duoneb 3.0-0.5 Mg/3 Ml) 3 ml NEB Q4H PRN PRN Reason: shortness of breath/wheezing Amlodipine Besylate (Norvasc) 5 mg PO DAILY [facility] Aspirin (Halfprin) 81 mg PO WITHBREAKFAST CABRERA Docusate Sodium (Colace) 100 mg PO BID PRN PRN Reason: Constipation Enoxaparin Sodium (Lovenox) 40 mg SUBCUT DAILY [facility]RERA Dextrose/Sodium Chloride (Dextrose 5%-1/2 Ns) 1,000 mls @ 75 mls/hr IV ASDIRECTED CABRERA Sodium Chloride (Normal Saline) 1,000 mls @ 999 mls/hr IV .BOLUS CABRERA Magnesium Hydroxide (Milk Of Magnesia) 30 ml PO Q12H PRN PRN Reason: Constipation Non-Formulary Medication (Calcium Carbonate/Vitamin D3 [Calcium 600 + Vit D 400 Softgl]) 2 each PO DAILY CABRERA Non-Formulary Medication (Fluticasone/Umeclidin/Vilanter [Trelegy Ellipta 100- 62.5-25 Mcg]) 1 puff INH DAILY CABRERA Non-Formulary Medication (Levothyroxine Sodium [Synthroid]) 150 mcg PO ACBREAKFAST CABRERA Sodium Chloride (Saline Flush) 10 ml FLUSH ASDIRECTED PRN PRN Reason: Keep Vein Open Last Admin: 11/19/19 13:49 Dose: 10 ml Assessment/Plan Comment:: #Acute on chronic respiratory failure. Likely due to pneumonia versus COPD exacerbation -Patient presented to the ED for evaluation of increasing shortness of breath requiring supplemental oxygen -He was hypoxic and was placed on nonrebreather -Admit to medical floor -Monitor vitals -Monitor respiratory status -Continue nonrebreather and wean off as able -Duo nebs every 4 hours -Solu-Medrol -IV Zosyn -Continue remainder COPD home medications #COPD exacerbation with hypoxia and hypercapnea -Continue nebs treatment #Respiratory acidosis -Continue treatment as above #Pneumonia. Likely community-acquired versus aspiration pneumonia -Chest x-ray shows right lower lobe consolidation -Sputum for Gram stain and culture -Blood culture -IV Zosyn -Aspiration precautions #Sepsis due to above -Serial lactate every 4 hourly 2 -IV fluids -IV antibiotic as above -Follow up on cultures #Hypertension -BP within acceptable limits -Continue home medications -Monitor BP closely #Hypothyroidism -Continue Synthroid #DNI/DNR
[2019-11-19] MEDS ORDERED: Sodium Chloride 0.9% 1,000 ML IV ONE (16:00)
[2019-11-19] MEDS ORDERED: Dextrose 5%-0.45% NaCl 1,000 ML IV SCH (16:00)
[2019-11-19 17:03] VITALS: BP 150/67; PULSE 81
[2019-11-19] MEDS ORDERED: Piperacillin/Tazobactam 3.375 GM in Sodium Chloride 0.9% 100 ML IV SCH (18:00)
[2019-11-19] MEDS ORDERED: Morphine 10 MG/0.5 ML Oral Syringe SL PRN (21:04)
[2019-11-19] MEDS: LORazepam 2 MG/ML SDV IVPUSH PRN ×2 (21:45→23:55)
[2019-11-19] MEDS ORDERED: methylPREDNISolone Sodium Succinate 125 MG/2 ML SDV IVPUSH SCH (22:00)
[2019-11-20] MEDS ORDERED: Levothyroxine 150 MCG Tab PO SCH (06:00)
[2019-11-20] MEDS ORDERED: Aspirin 81 MG Tab.EC PO SCH (08:00)
[2019-11-20] MEDS ORDERED: Enoxaparin 40 MG/0.4 ML Syringe SUBCUT SCH (09:00)
[2019-11-20] MEDS ORDERED: amLODIPine 5 MG Tab PO SCH (09:00)
[2019-11-20] MEDS ORDERED: Non-Formulary Medication 1 Each (Fluticasone/Umeclidin/Vilanter [Trelegy Ellipta 100-62.5- INH SCH (09:00)
[2019-11-20] MEDS ORDERED: Lisinopril 20 MG Tab PO SCH (09:00)
[2019-11-20] MEDS ORDERED: Calcium Carbonate/Vitamin D3 1250 MG-200 Unit Tab PO SCH (09:00)
--- NOTE | 2019-11-26 18:25 | PCM.DCSUM1 ---
Discharge Summary - Hospital Course Free Text/Narrative:: Patient was admitted earlier because of COPD and shortness of breath. Family decided to change CODE STATUS to comfort measures. The patient shortly after. Refer to admission note for details. - Discharge Data Discharge Date: 11/19/19 Discharge Disposition: [facility] Condition: - Referral to Home Health Primary Care Physician: PCP Unobtainable - Patient Summary/Data Consults: Consultations 11/19/19 16:32 Consult to Palliative Care [CONS] Routine - Discharge Plan *PRESCRIPTION DRUG MONITORING PROGRAM REVIEWED*: Not Applicable *COPY OF PRESCRIPTION DRUG MONITORING REPORT IN PATIENT KARIME: Not Applicable Home Medications: Home Meds Levothyroxine Sodium [Synthroid] 150 mcg PO ACBREAKFAST 07/25/15 [History] Lisinopril 40 mg PO DAILY 07/25/15 [History] Aspirin [Halfprin] 81 mg PO WITHBREAKFAST #30 tab.ec 07/29/15 [Rx] Calcium Carbonate/Vitamin D3 [Calcium 600 + Vit D 400 Softgl] 2 each PO DAILY [History] Albuterol Sulfate 1 unit INH Q4HR PRN 06/27/18 [History] Albuterol [Ventolin HFA] 2 puff INH Q4HR PRN 06/27/18 [History] amLODIPine Besylate [Amlodipine Besylate] 5 mg PO DAILY 06/27/18 [History] Fluticasone/Umeclidin/Vilanter [Trelegy Ellipta 100-62.5-25 MCG] 1 puff INH DAILY 11/04/18 [History] - Discharge Summary/Plan Comment DC Time >30 min.: No - Patient Data Vitals - Most Recent: Last Vital Signs Temp 37.0 C 11/19/19 15:50 Pulse 81 11/19/19 15:50 Resp 28 H 11/19/19 15:50 BP 150/67 H 11/19/19 15:50 Pulse Ox 95 11/19/19 15:50 Weight - Most Recent: 52.163 kg Med Orders - Current: Current Medications Discontinued Medications Acetaminophen (Tylenol) 650 mg PO Q4H PRN PRN Reason: Pain (Mild 1-3)/fever Albuterol (Proventil Hfa) 0 gm INH Q4H PRN PRN Reason: breathing Albuterol/Ipratropium (Duoneb 3.0-0.5 Mg/3 Ml) 3 ml NEB ONETIME ONE Stop: 11/19/19 13:31 Last Admin: 11/19/19 13:46 Dose: 3 ml Albuterol/Ipratropium (Duoneb 3.0-0.5 Mg/3 Ml) 3 ml NEB Q4H PRN PRN Reason: shortness of breath/wheezing Last Admin: 11/19/19 16:37 Dose: 3 ml Amlodipine Besylate (Norvasc) 5 mg PO DAILY COUNTS INCLUDE 234 BEDS AT THE [facility] Aspirin (Halfprin) 81 mg PO WITHBREAKFAST COUNTS INCLUDE 234 BEDS AT THE [facility] Calcium Carbonate (Calcium Carbonate/Vitamin D 1250 Mg-200 Unit) 2 tab PO DAILY COUNTS INCLUDE 234 BEDS AT THE [facility] Docusate Sodium (Colace) 100 mg PO BID PRN PRN Reason: Constipation Enoxaparin Sodium (Lovenox) 40 mg SUBCUT DAILY COUNTS INCLUDE 234 BEDS AT THE [facility] Piperacillin Sod/Tazobactam (Sod 3.375 gm/ Sodium Chloride) 100 mls @ 200 mls/ hr IV ONETIME ONE Stop: 11/19/19 14:23 Last Admin: 11/19/19 14:06 Dose: 200 mls/hr Dextrose/Sodium Chloride (Dextrose 5%-1/2 Ns) 1,000 mls @ 75 mls/hr IV ASDIRECTED COUNTS INCLUDE 234 BEDS AT THE [facility] Last Infusion: 11/19/19 19:20 Dose: Infused Sodium Chloride (Normal Saline) 1,000 mls @ 999 mls/hr IV ONETIME ONE Stop: 11/19/19 17:00 Last Admin: 11/19/19 17:00 Dose: 999 mls/hr Piperacillin Sod/Tazobactam (Sod 3.375 gm/ Sodium Chloride) 100 mls @ 200 mls/ hr IV Q6H COUNTS INCLUDE 234 BEDS AT THE [facility] Last Admin: 11/19/19 22:21 Dose: Not Given Levothyroxine Sodium (Levothyroxine) 150 mcg PO ACBREAKFAST COUNTS INCLUDE 234 BEDS AT THE [facility] Lisinopril (Prinivil) 40 mg PO DAILY COUNTS INCLUDE 234 BEDS AT THE [facility] Lorazepam (Ativan) 1 mg IVPUSH Q2H PRN PRN Reason: Anxiety Last Admin: 11/19/19 23:55 Dose: 1 mg Magnesium Hydroxide (Milk Of Magnesia) 30 ml PO Q12H PRN PRN Reason: Constipation Methylprednisolone Sodium Succinate (Solu-Medrol) 125 mg IVPUSH ONETIME ONE Stop: 11/19/19 13:31 Last Admin: 11/19/19 13:48 Dose: 125 mg Methylprednisolone Sodium Succinate (Solu-Medrol) 125 mg IVPUSH Q8H CABRERA Morphine Sulfate (Morphine 10 Mg/0.5 Ml Oral Syringe) 5 mg SL Q4H PRN PRN Reason: Pain Last Admin: 11/19/19 23:54 Dose: 5 mg Non-Formulary Medication (Fluticasone/Umeclidin/Vilanter [Trelegy Ellipta 100- 62.5-25 Mcg]) 1 puff INH DAILY CABRERA Sodium Chloride (Saline Flush) 10 ml FLUSH ASDIRECTED PRN PRN Reason: Keep Vein Open Last Admin: 11/19/19 23:55 Dose: 10 ml
== END 2019-11-20 02:48 | disposition expired | DRG 871 ==
LOC: DL.ED 13:26 → DL.MS 14:55
PROVIDERS: ADMIT Student in an Organized Health Care Education/Training Program; ATTEND Student in an Organized Health Care Education/Training Program
DX: A41.9 Sepsis, unspecified organism (principal); J96.21 Acute and chronic respiratory failure with hypoxia; J96.22 Acute and chronic respiratory failure with hypercapnia; I46.9 Cardiac arrest, cause unspecified; J69.0 Pneumonitis due to inhalation of food and vomit; J44.0 Chronic obstructive pulmonary disease with (acute) lower respiratory infection; Z87.01 Personal history of pneumonia (recurrent); J44.1 Chronic obstructive pulmonary disease with (acute) exacerbation; E87.2 Acidosis; E44.0 Moderate protein-calorie malnutrition; Z66 Do not resuscitate; Z51.5 Encounter for palliative care; R23.0 Cyanosis; I10 Essential (primary) hypertension; E03.9 Hypothyroidism, unspecified; Z96.641 Presence of right artificial hip joint; Z88.5 Allergy status to narcotic agent; Z79.82 Long term (current) use of aspirin; Z79.890 Hormone replacement therapy; Z79.899 Other long term (current) drug therapy; Z87.891 Personal history of nicotine dependence; Z99.81 Dependence on supplemental oxygen; Z79.51 Long term (current) use of inhaled steroids; Z86.14 Personal history of Methicillin resistant Staphylococcus aureus infection
CPT/HCPCS: 36415; 36600; 71045; 80053; 82803; 83605; 83735; 83880; 84100; 84484; 85025; 87040 ×2; 87804 ×2; 93005; 94640; 96365; 96375; 99285; J2543; J2930; J7050; 93010; 99284; A9270-GY; J2060; J7040; J7042; J7620-GY